=== PATIENT | male | born 1980 | race Caucasian/White ===

== ENCOUNTER 2023-09-01 20:21 | Emergency (ER) | payer SELFPAY ==
[~2023-09-01] VITALS: Ht 185.4 cm; Wt 82.0 kg
[2023-09-01 21:02] VITALS: BP 151/88; PULSE 84; RESP 16; TEMP 98.6; O2SAT 98
[2023-09-01] MEDS: ACETAMINOPHEN 325MG TABLET PO ONE (23:51)
== END 2023-09-02 01:40 | disposition home or self-care (01) ==
LOC: ER 20:34
DX: S02.2XXA Fracture of nasal bones, initial encounter for closed fracture (principal); Y08.89XA Assault by other specified means, initial encounter; Y93.89 Activity, other specified; Y92.89 Other specified places as the place of occurrence of the external cause; Y99.8 Other external cause status
CPT/HCPCS: 70486; 71045; 99284